=== PATIENT | male | born 1940 | race Caucasian/White ===

== ENCOUNTER 2016-08-06 11:00 | Emergency (ER) ==
[2016-08-06] MEDS ORDERED: MORPHINE 4 MG/ML SYRINGE IM STA (11:16)
[2016-08-06] MEDS ORDERED: ZOFRAN 4 MG/2 ML IM STA (11:16)
[2016-08-06 11:22] VITALS: BP 130/73; TEMP 97.1; BMI 38.5
--- NOTE | 2016-08-06 11:49 | CT ---
Exam: CT abdomen and pelvis without IV contrast. Clinical indication: Abdominal pain. No further information is provided. TECHNIQUE: Axial unenhanced CT images of the abdomen and pelvis were obtained followed by coronal a nd sagittal reformats. Comparison is made to the prior study dated 04/05/2016. Findings: There is no free intra-abdominal gas or fluid. Within the right posterolateral aspect of the urinary bladder there is a 1.5 x 0.9 cm bladder bladde r calculus. The urinary bladder is distended measuring 11.6 x 13.3 cm in axial dimension and extends 17 cm in cr aniocaudal dimension. The estimated urine volume is greater than 1 liter. This raises concern for b ladder outlet obstruction. There are bilateral parapelvic cysts. The bilateral kidneys are otherwise grossly unremarkable, giv en the limitations of an unenhanced CT. There has been a prior cholecystectomy. The liver, adrenals, pancreas, and spleen are unremarkable given limitations of an unenhanced CT, ot her than incidental punctate splenic calcifications consistent with old healed granulomatous disease . There is a small hiatal hernia. There are multiple surgical clips surrounding the hiatal hernia and epigastric region. There is some rectal fecal implantation. The remainder of the bowel is unremar kable. There are no enlarged abdominal or pelvic lymph nodes, by size criteria. There is aortoiliac atherosclerotic vascular calcifications. The remainder the visualized portions of lower thorax are within normal limits. The visualized bony structures are unremarkable for the patient's age. Impression: 1. Distended urinary bladder suggesting bladder outlet obstruction with greater than 1 liter of uri ne in the urinary bladder. 2. Large bladder calculus. 3. Small hiatal hernia. 4. Otherwise unremarkable CT of the abdomen and pelvis, given the limitations of an unenhanced CT.
[2016-08-06 11:52] LABS: BASOPHILS % (AUTO) 0.6 % (0.0-3.0); EOSINOPHILS # (AUTO) 0.1 K/ul (0.0-0.7); HEMATOCRIT 45.2 % (42.0-52.0); HEMOGLOBIN 14.9 g/dl (14.0-18.0); IMMATURE GRANULOCYTE % (AUTO) 0.3 % (0.0-5.0); LYMPHOCYTES # (AUTO) 1.4 K/uL (0.60-3.4); LYMPHOCYTES % (AUTO) 19.9 (10.0-50.0); MEAN CORPUSCULAR HEMOGLOBIN 29.4 pg (27.0-31.0); MEAN CORPUSCULAR VOLUME 89.3 fl (80.0-94.0); MONOCYTES # (AUTO) 0.4 K/uL (0.4-2.0); MONOCYTES % (AUTO) 6.4 (0-10); NEUTROPHILS % (AUTO) 71.8; PLATELET COUNT 223 10^3/uL (140-440); RED BLOOD COUNT 5.06 10^6/ul (4.70-6.10); WHITE BLOOD COUNT 6.92 K/ul (4.2-10.2)
[2016-08-06] MEDS ORDERED: URO-JET MUCOUSMEMB ONE (12:12)
[2016-08-06 12:17] LABS: ALBUMIN 4.1 g/dL (3.4-5.0); ALBUMIN/GLOBULIN RATIO 1.28; ANION GAP 15.8; BILIRUBIN,TOTAL 0.67 mg/dL (0.00-1.20); BUN/CREATININE RATIO 18.39; CALCIUM 10.2 mg/dL (8.2-10.2); CREATININE 0.87 mg/dL (0.60-1.10); POTASSIUM 3.8 mmol/L (3.5-5.1); TOTAL PROTEIN 7.3 g/dL (5.8-8.1)
[2016-08-06 12:19] LABS: BILIRUBIN,URINE Negative (NEGATIVE); KETONES,URINE Negative (NEGATIVE); LEUKOCYTE ESTERASE ,URINE Negative (NEGATIVE); NITRITE,URINE Negative (NEGATIVE); PROTEIN,URINE Negative (NEGATIVE); URINE, BLOOD 2+ (NEGATIVE)
[2016-08-06 12:23] LABS: ADD URINE MICROSCOPIC YES
[2016-08-06 12:24] LABS: BACTERIA,URINE TRACE (NOT PRESENT)
--- NOTE | 2016-08-06 13:25 | ED.PDOC ---
General ED Provider: Dr. NIYA BURRELL Chief Complaint: Abdominal Pain Stated Complaint: abdominal pain unable to void Time Seen by Physician: 11:00 Mode of Arrival: Walk-In Information Source: Patient Exam Limitations: No limitations Primary Care Provider: KAREN CHAIDEZ Nursing and Triage Documentation Reviewed and Agree: Yes Complaint Exam - Complaint/Exam Patient Complains of: Reports: Dysuria Onset/Duration: 2 days Symptoms Are: Still present Initial Severity: Moderate Current Severity: Moderate Location of Pain: Reports: Suprapubic Aggravating: Reports: Voiding Alleviating: Reports: None Associated Signs and Symptoms: Reports: Dysuria. Denies: Diaphoresis, Back pain , Fever, Hematuria, Constipation, Blood in stool, Rectal pain, Appetite change, Nausea, Vomiting, Penile swelling, Penile discharge, Decreased urine output, Increased urine frequency, Increased thirst, Decreased activity, Lethargy, Scrotal pain, Scrotal swelling, Abdominal Pain Testicular Torsion Risk Factors: Reports: None Surgical Obstruction Risk Factors: Reports: None Related Surgical History: Reports: None Abdominal Findings: Present: None Differential Diagnoses: UTI, Ureteral Calculi Review of Systems - Review Of Systems Constitutional: Reports: No symptoms Eyes: Reports: No symptoms Ears, Nose, Mouth, Throat: Reports: No symptoms Respiratory: Reports: No symptoms Cardiac: Reports: No symptoms GI: Reports: No symptoms : Reports: Dysuria Musculoskeletal: Reports: No symptoms Skin: Reports: No symptoms Neurological: Reports: No symptoms Endocrine: Reports: No symptoms Hematologic/Lymphatic: Reports: No symptoms All Other Systems: Reviewed and Negative Past Medical History - Past Medical History Previously Healthy: No Endocrine: Reports: DM 2 Cardiovascular: Reports: Hypertension Respiratory: Reports: None Hematological: Reports: None Gastrointestinal: Reports: None Genitourinary: Reports: None Neuro/Psych: Reports: None Musculoskeletal: Reports: None Cancer: Reports: None - Surgical History General Surgical History: Reports: None - Family History Family History: Reports: Unknown - Social History Smoking Status: Former smoker Hx Substance Use: No Alcohol Screening: None - Immunizations Tetanus Shot up to Date: No Physical Exam - Physical Exam Appearance: Well-appearing, No pain distress, Well-nourished Eyes: ANJALI, EOMI, Conjunctiva clear ENT: Ears normal, Nose normal, Oropharynx normal Respiratory: Airway patent, Breath sounds clear, Breath sounds equal, Respirations nonlabored Cardiovascular: RRR, Pulses normal, No rub, No murmur GI/: Soft (distended ) Musculoskeletal: Normal strength, ROM intact, No edema, No calf tenderness Skin: Warm, Dry, Normal color Neurological: Sensation intact, Motor intact, Reflexes intact, Cranial nerves intact, Alert, Oriented Psychiatric: Affect appropriate, Mood appropriate Critical Care Note - Critical Care Note Total Time (mins): 0 Course - Course Hematology/Chemistry: 08/06/16 11:50 08/06/16 11:50 Orders, Labs, Meds: Lab Review 08/06/16 08/06/16 11:50 12:05 WBC 6.92 RBC 5.06 Hgb 14.9 Hct 45.2 MCV 89.3 MCH 29.4 MCHC 33.0 RDW Coeff of Fabiano 14.6 Plt Count 223 Immature Gran % (Auto) 0.3 Neut % (Auto) 71.8 Lymph % (Auto) 19.9 [place] % (Auto) 6.4 Eos % (Auto) 1.0 Baso % (Auto) 0.6 Immature Gran # (Auto) 0.0 Neut # 5.0 Lymph # 1.4 [place] # 0.4 Eos # 0.1 Baso # 0.0 Sodium 139 Potassium 3.8 Chloride 107 Carbon Dioxide 20 L Anion Gap 15.8 BUN 16 Creatinine 0.87 Estimated GFR (MDRD) 86.00 BUN/Creatinine Ratio 18.39 Glucose 147 H Calcium 10.2 Total Bilirubin 0.67 AST 28 ALT 28 Alkaline Phosphatase 62 Total Protein 7.3 Albumin 4.1 Globulin 3.2 Albumin/Globulin Ratio 1.28 Amylase 50 Lipase 21 Urine Color Yellow Urine Clarity Clear Urine pH 7.0 Ur Specific [place] 1.025 Urine Protein Negative Urine Glucose (UA) Negative Urine Ketones Negative Urine Blood 2+ Urine Nitrite Negative Urine Bilirubin Negative Urine Urobilinogen 0.2 Ur Leukocyte Esterase Negative Urine Microscopic RBC 30-50 Urine Microscopic WBC 0-2 Ur Squamous Epith Cells Not present Ur Renal Epithelial Cell 0-2 Urine Bacteria Trace Urine Mucus Trace Orders Category Date Time Status Fisher [ED CATHETER INSERTION AND CARE] .ONCE EMERGENCY 08/06/16 13:26 Active AMYLASE Stat LAB 08/06/16 11:50 Completed CBC W/ AUTO DIFF Stat LAB 08/06/16 11:50 Completed COMPREHENSIVE METABOLIC PANEL Stat LAB 08/06/16 11:50 Completed LIPASE Stat LAB 08/06/16 11:50 Completed URINALYSIS C & S IF INDICATED Stat LAB 08/06/16 12:05 Completed Lidocaine HCl [Uro-Jet] MEDS 08/06/16 12:12 Discontinued 10 ml MUCOUSMEMB .STK-MED ONE Lidocaine HCl [Uro-Jet] MEDS 08/06/16 13:26 Discontinued 10 ml [email or web address] ONCE STA Morphine Sulfate [Morphine 4 mg/ml Syringe] MEDS 08/06/16 11:16 Discontinued 4 mg IM ONCE STA Ondansetron HCl/Pf [Zofran 4 mg/2 ml] MEDS 08/06/16 11:16 Discontinued 4 mg IM ONCE STA CT ABDOMEN/PELVIS WO CONTRAST Stat RADS 08/06/16 11:13 Completed Medications Discontinued Medications Generic Name Dose Route Start Last Admin Trade Name Freq PRN Reason Stop Dose Admin Lidocaine HCl 10 ml 08/06/16 13:26 Uro-Jet [email or web address] 08/06/16 13:27 ONCE STA Morphine Sulfate 4 mg 08/06/16 11:16 08/06/16 11:36 Morphine 4 Mg/Ml Syringe IM 08/06/16 11:17 4 mg ONCE STA Administration Ondansetron HCl 4 mg 08/06/16 11:16 08/06/16 11:36 Zofran 4 Mg/2 Ml IM 08/06/16 11:17 4 mg ONCE STA Administration Vital Signs: Temp Pulse Resp BP Pulse Ox 08/06/16 11:01 97.1 F L 94 H 25 H 130/73 97 Departure - Departure Time of Disposition: 13:25 (spoke to doctor young ct discussed. he would like fisher and flomax started ) Disposition: HOME SELF-CARE Discharge Problem: Urinary tract obstruction due to kidney stone, Abdominal pain Instructions: Abdominal Pain (ED), Urinary Retention in Men (ED) Condition: Good Pt referred to PMD for follow-up: Yes Additional Instructions: Please call your Family Physician as soon as possible to schedule a follow-up appointment. Allergies/Adverse Reactions: Allergies No Known Allergies Allergy (Unverified 08/06/16 11:07) Home Medications: Ambulatory Orders Gabapentin [Gabapentin] 300 mg PO BEDTIME 09/13/13 Lisinopril/Hydrochlorothiazide [Lisinopril-Hctz 20-25 mg Tab] 1 tab PO DAILY Diclofenac Sodium [Voltaren-Xr] 75 mg PO BEDTIME 07/06/15 Hydrocodone/Acetaminophen [[place] 10-325 Tablet] 1 each PO Q6HR PRN #14 tablet Disposition Discussed With: Patient
[2016-08-06] MEDS ORDERED: URO-JET MUCOUSMEMB STA (13:26)
== END 2016-08-06 13:35 | disposition home or self-care (01) ==
LOC: ED 11:00
DX: N20.0 Calculus of kidney (principal); N13.8 Other obstructive and reflux uropathy; Z79.899 Other long term (current) drug therapy; E11.9 Type 2 diabetes mellitus without complications; I10 Essential (primary) hypertension
CPT/HCPCS: 36415; 80053; 81001; 82150; 83690; 85025; 96372; 99283